=== PATIENT | female | born 1965 | race Caucasian/White ===

== ENCOUNTER 2025-02-16 15:01 | Emergency (ER) | payer MEDICAID, OTHER ==
[~2025-02-16] VITALS: Ht 160 cm; Wt 70.0 kg
[2025-02-16 15:07] VITALS: TEMP 98.2
--- NOTE | 2025-02-16 15:34 | ED.PDOC ---
History of Present Illness HPI Comments 59 year old female presents to the ED with a chief complaint of back pain onset 2 weeks. Patient states about 2 weeks ago, she fell from bed, landing on back and has been experiencing back pain since, taken Tylenol for pain. She noticed pain worsened since yesterday, went to urgent care today and XR showed T6 fracture, was given Dexamethasone and Toradol, was sent to ED. Denies head injury, LOC, nausea, vomiting, headache, dizziness, numbness/tingling. No other symptoms or modifying factors present at this time. Chief Complaint: Back Pain Time Seen by MD: 15:18 Reviewed Notes: Medications, Allergies Information Source: Patient Mode of Arrival: Ambulatory Severity: Moderate Timing: Weeks Duration: Since onset Prehospital treatment: None Past Medical History PAST MEDICAL HISTORY: Denies Surgical History: Denies all surgeries FLIGHT CONTROL MANAGER History: No Pertinent FLIGHT CONTROL MANAGER History Family History Family History: Reviewed,noncontributory to illness, No family hx of Cancer, No family hx of DM, No family hx of Heart chip, No family hx of HTN, No family hx ofKidney chip, No family hx of Liver chip, No family hx of Lung chip, No family hx of Stroke Social History Smoker: Non-Smoker Alcohol: Denies ETOH Use Drugs: Denies Drug Use Lives In: Home Constitutional: denies: chills, diaphoresis, fatigue, fever, malaise, sweats, weakness, others EENTM: denies: blurred vision, double vision, ear bleeding, ear discharge, ear drainage, ear pain, ear ringing, eye pain, eye redness, hearing loss, mouth pain, mouth swelling, nasal discharge, nose bleeding, nose congestion, nose pain, photophobia, tearing, throat pain, throat swelling, voice changes, others Respiratory: denies: cough, hemoptysis, orthopnea, SOB at rest, shortness of breath, SOB with excertion, stridor, wheezing, others Cardiovascular: denies: chest pain, dizzy spells, diaphoresis, Dyspnea on exertion, edema, irregular heart beat, left arm pain, lightheadedness, palpitations, PND, syncope, others Gastrointestinal: denies: abdomen distended, abdominal pain, blood streaked bowels, constipated, diarrhea, dysphagia, difficulty swallowing, hematemesis, melena, nausea, poor appetite, poor fluid intake, rectal bleeding, rectal pain, vomiting, others Genitourinary: denies: abnormal vagina bleeding, burning, dyspareunia, dysuria, flank pain, frequency, hematuria, incontinence, pain, , vagina discharge, urgency, others Neurological: denies: dizziness, fainting, headache, left sided numbness, left sided weakness, numbness, paresthesia, pre-existing deficit, right sided numbness, right sided weakness, seizure, speech problems, tingling, tremors, weakness, others Musculoskeletal: reports: back pain; denies: gout, joint pain, joint swelling, muscle pain, muscle stiffness, neck pain, others Integumetry: denies: bruises, change in color, change in hair/nails, dryness, laceration, lesions, lumps, rash, wounds, others Allergic/Immunocompromised: denies: Difficulty Healing, Frequent Infections, Hives, Itching, others Hematologic/Lymphatic: denies: anemia, blood clots, easy bleeding, easy bruising, swollen glands, others Endocrine: denies: excessive hunger, excessive sweating, excessive thirst, excessive urination, flushing, intolerance to cold, intolerance to heat, unexplained weight gain, unexplained weight loss, others Psychiatric: denies: anxiety, bipolar disorder, depression, hopeless, panic disorder, schizophrenia, sleepless, suicidal, others All Other Systems: Reviewed and Negative Physical Exam General Appearance: No Apparent Distress, Normal HEENT: Normal ENT Inspection, Pharynx Normal, TMs Normal Neck: Full Range of Motion, Non-Tender, Normal, Normal Inspection Respiratory: Chest Non-Tender, Lungs Clear, No Accessory Muscle Use, No Respiratory Distress, Normal Breath Sounds Cardiovascular: No Edema, No JVD, No Murmur, No Gallop, Normal Peripheral Pulses, Regular Rate/Rhythm Breast Exam: Deferred Gastrointestinal: No Organomegaly, Non Tender, No Pulsatile Mass, Normal Bowel Sounds, Soft Genitalia: Deferred Pelvic: Deferred Rectal: Deferred Extremities: No calf tenderness, Normal capillary refill, Normal inspection, Normal range of motion, Non-tender, No pedal edema Musculoskeletal : Apperance: Normal Neurologic: Alert, multimedia instructional designer II-XII nml as Tested, No Motor Deficits, Normal Affect, Normal Mood, No Sensory Deficits Cerebellar Function: Normal Reflexes: Normal Skin: Dry, Normal Color, Warm Lymphatic: No Adenopathy Was a procedure done? Was a procedure done?: No Differential Dx Considerations may include: Compression fracture X-Ray, Labs, Meds, VS Vital Signs Date Time Temp Pulse Resp B/P (MAP) Pulse Ox O2 Delivery O2 Flow Rate FiO2 02/16/25 16:25 106 24 97 Room Air* 0 21 02/16/25 16:16 99 20 154/120 (131) 95 02/16/25 15:07 98.2 98 20 165/87 (113) 98 98.2 Current Medications Medications (Trade) Dose Ordered Sig/Guillermo Route Start Time Stop Time Status Last Admin Acetaminophen/ Hydrocodone Bitart ([place] 5/325MG Tab) 1 tab ONCE ONCE PO 02/16/25 16:45 02/16/25 16:46 DC 02/16/25 16:50 Time of 1ST Reevaluation: 15:48 Reevaluation 1ST: Unchanged Patient Education/Counseling: Diagnosis, Treatment, Prognosis Family Education/Counseling: No Family Present Departure 1 Departure Time of Disposition: 17:45 (Patient has mild compression fractures of her upper spine however she has no neuro deficits and her pain is improving. We will discharge patient home with outpatient spine follow up) Impression: Primary Impression: Compression fracture of T6 vertebra Qualified Codes: S22.050A - Wedge compression fracture of T5-T6 vertebra, initial encounter for closed fracture Additional Impressions: Compression fracture of T1 vertebra Qualified Codes: S22.010A - Wedge compression fracture of first thoracic vertebra, initial encounter for closed fracture Compression fracture of T2 vertebra Qualified Codes: S22.020A - Wedge compression fracture of second thoracic vertebra, initial encounter for closed fracture Compression fracture of C7 vertebra Qualified Codes: S12.690A - Other displaced fracture of seventh cervical vertebra, initial encounter for closed fracture Disposition: 01 HOME / SELF CARE / HOMELESS Condition: Stable Referrals: ELY COATS MD Additional Instructions: You have a compression fracture of your spine. For pain you can take the followinam: Ibuprofen 400mg with food Noon: Acetaminophen 1000mg 4pm: Ibuprofen 400mg with food 8pm: Acetaminophen 1000mg You were prescribed oxycodone to take as needed for breakthrough pain. You should follow up with spine surgery. Please call for an appointment. You should follow up with your regular doctor within one week to ensure you are doing better. If your symptoms worsen or you have any other concerns then please return to the ER. e-Prescriptions Oxycodone HCl (Oxycodone Hydrochloride) 5 Mg Tab 5 MG PO QID for 3 Days, #12 TAB Prov: VONDA MUSTAFA MD 02/16/25 Discharged With: Self Critical Care Note Critical Care Time?: No Stability Stability form required: No I personally scribed for VONDA MUSTAFA MD ([email or web address]) on 02/16/25 at 15:34. Electronically submitted by Renée Redman ([email or web address]). VONDA MUSTAFA MD February 16, 2025 15:34
[2025-02-16 16:25] VITALS: PULSE 106; RESP 24; O2SAT 97
[2025-02-16] MEDS: HYDROcodone-ACET 5/325MG TAB PO ONE (16:50)
--- NOTE | 2025-02-16 17:00 | DVH ---
Procedure: CT THORACIC SPINE WO GENIA 02/16/2025 03:41 PM Indication: T6 FX ON XRAY; INTRACTABLE PAIN Comparison Study: None Technique: Axial images thoracic spine were obtained and reformatted in coronal and sagittal planes. All CT scans at this medical facility are performed using dose modulation techniques as appropriate t o a performed exam including the following: Automated exposure control was utilized; adjustment of th e MA and/or KV according to patient size; and use of iterative reconstruction technique. CT Dose: CTD I volume is 25 mGy. Dose-length product is 1011.9 mGy*cm FINDINGS: Bones: Mild depression of the superior endplates of C7, T1 and T2 with approximately 10% loss of heig ht without retropulsion. Moderate depression of the superior endplate of T6 with approximately 30% lo ss of height without retropulsion. Schmorl's nodes are seen in the superior endplates of T7 and T11. Soft tissues: Paraspinal and prevertebral soft tissues unremarkable. Paraseptal emphysematous changes noted in bilateral apices. Dependent atelectasis in the bilateral lower lobes. IMPRESSION: 1. Age-indeterminate compression deformities of several cervical and thoracic vertebrae with up to 30 % loss of height at T6 level without retropulsion.
[2025-02-16] MEDS ORDERED: OXYC-900 PO (17:50)
[2025-02-16] MEDS ORDERED: AMLO1TAB22 PO (18:17)
[2025-02-16] MEDS: amLODIPine BESYLATE 5 MG TAB PO ONE (18:22)
[2025-02-16 18:53] VITALS: BP 149/92; PULSE 98; RESP 18; O2SAT 96
== END 2025-02-16 18:54 | disposition home or self-care (01) ==
LOC: ER 15:09
DX: S12.090A Other displaced fracture of first cervical vertebra, initial encounter for closed fracture (principal); S12.190A Other displaced fracture of second cervical vertebra, initial encounter for closed fracture; S22.050A Wedge compression fracture of T5-T6 vertebra, initial encounter for closed fracture; S12.690A Other displaced fracture of seventh cervical vertebra, initial encounter for closed fracture; W06.XXXA Fall from bed, initial encounter; Y93.89 Activity, other specified; Y92.89 Other specified places as the place of occurrence of the external cause; Y99.8 Other external cause status
CPT/HCPCS: 72128